=== PATIENT | male | born 1945 | race Caucasian/White ===

== ENCOUNTER → 2017-06-22 | Outpatient (CLI) | payer BC ==
[~2017-06-22] MED LIST: ASPEC81 PO; CHOL2000 PO; COEN100C11 PO; HYDR-5688 PO; HYG/25 PO; METO25TA3 PO; OMEG10007 PO; PRVC/40 PO
--- NOTE | 2017-06-22 12:16 | DIAGNOSTIC IMAGING REPORT ---
CHEST 2 VIEWS ROUTINE CLINICAL HISTORY: R07.89 ATYPICAL CHEST PAIN COMPARISON STUDY: 11/10/2016 FINDINGS: There is persistent elevation/eventration right hemidiaphragm. The heart is normal in size. There is no failure. There is no focal pulmonary consolidation. There are no pleural effusions.[ IMPRESSION: No acute findings. Stable elevation/eventration of the right hemidiaphragm Electronically signed by: Rico Diana M.D. 06/22/2017 12:15 PM Dictated Date/Time: 06/22/2017 12:14 PM
== END | disposition home or self-care (01) ==
LOC: C.RAD1850 11:51
PROVIDERS: ATTEND Student in an Organized Health Care Education/Training Program
DX: R07.89 Other chest pain (principal)

== ENCOUNTER → 2017-06-22 | Outpatient (CLI) | payer BC | END | disposition home or self-care (01) | LOC: C.LAB 09:44 | PROVIDERS: ATTEND Family Medicine | DX: R07.89 Other chest pain (principal) ==